=== PATIENT | male | born 1975 | race Two or more races ===

== ENCOUNTER 2024-03-26 09:39 | Emergency (ER) | payer MEDICAID, SELFPAY ==
--- NOTE | ~2024-03-26 | XR_ITS ---
EXAMINATION: XR chest 2V CLINICAL INFORMATION: Reason for Exam crackles, CP COMPARISON: 2018 TECHNIQUE: XR chest 2V, 2 Views Lungs and Zo: Both lungs are clear. Pleura: Normal. Costophrenic angles are sharp. No pneumothorax. Heart: The heart is normal in size. Mediastinum: The mediastinum is within normal limits.. Bones: Skeletal structures included are normal for patient's age. XR/XR chest 2V IMPRESSION: No radiographic evidence of acute cardiopulmonary disease. .
[2024-03-26 09:52] VITALS: BP 107/72; PULSE 77; RESP 18; TEMP 36.6; O2SAT 97; BMI 23.6
--- NOTE | 2024-03-26 10:43 | ED_ITS ---
HPI - Extremity Problem General Chief complaint: Extremity Injury, Upper Stated complaint: R arm pain, no injury Time Seen by Provider: 03/26/24 10:13 Source: patient and RN notes reviewed Mode of arrival: ambulatory Limitations: no limitations History of Present Illness ED Provider: Mercedes Spence PA-C [facility] Narrative: This is a 48-year-old male who presents emergency department with complaints of right arm pain x3 days. Patient states that he has been going to physical therapy due to needing to increased cardio as he had a heart attack last year. He states that he was on the hand crank cycling for 15 minutes on and again on Thursday. He states that evening after physical therapy, he had pain in his right arm. He states that the pain worsened, and he went to physical therapy again. He states the pain comes and goes, and states that the pain at times can worsened with movement. He states that the pain also can occur at night when he is resting. He has been taking ibuprofen with minimal relief. He denies any fevers, chills, chest pain, shortness of breath, abdominal pain, nausea, vomiting or diarrhea. Related Data Previous Rx's ?Medication ?Instructions ?Recorded acetaminophen 500 mg tablet 500 mg PO Q6H PRN pain #30 tabs 03/26/24 (Tylenol Extra Strength) ibuprofen 600 mg tablet 600 mg PO Q6H PRN pain #30 tabs 03/26/24 Allergies Allergy/AdvReac Type Severity Reaction Status Date / Time gabapentin Allergy Intermediate Rash Verified 03/26/24 09:53 Review of Systems 2 Review of Systems: Yes all other systems are reviewed and are negative Constitutional: Constitutional: Reports as per [facility] Social History Social History Smoked in Last 30 Days: No Use of substances other than those prescribed or required for medical reasons: No Advance Directives: No Do you have a plan to hurt others: No Plan Physical Exam 2 Vital Signs: Vital Signs: Last Vital Signs Temp 98.9 F 03/26/24 15:19 Pulse 64 03/26/24 15:19 Resp 18 03/26/24 15:19 BP 113/78 03/26/24 15:19 Pulse Ox 98 03/26/24 15:19 O2 Del Method Room Air 03/26/24 15:19 BMI result Body Mass Index 23.6 Const: General: cooperative, comfortable and no acute distress O rientation/consciousness: patient oriented x3 Limitations: no limitations HEENT: Head: Yes normal to inspection, Yes normocephalic and Yes atraumatic Ears: hearing grossly normal bilaterally General nose exam: Normal external nose present Face and sinus: Yes normal facial exam Mouth: Normal oral and palatal mucosa present, oropharynx normal and moist mucous membranes Throat: Yes posterior oropharynx normal Eyes: General: appearance normal, both eyes and all related structures E yelids: Yes eyelids normal Conjunctivae: conjunctivae normal Sclerae: s clerae normal Pupils: Equal, round and reactive pupils present EOM: EOMs intact bilaterally Neck: Neck: Yes normal visual inspection, Yes full ROM and Yes no lymphadenopathy Lymphatic: no lymphadenopathy noted Chest: Chest palpation & inspection: normal inspection of the chest Resp: Effort & Inspection: normal respiratory effort and able to speak in complete sentences Auscultation: clear to auscultation bilaterally, no crackles, no rales, no rhonchi and no wheezes Cardio: Rate: regular rate Rhythm: regular rhythm Heart sounds: S1 normal heart sound present and S2 normal heart sound present GI: Inspection: Yes normal to inspection Skin: General skin exam: no rashes or lesions noted Trauma: no lacerations or abrasions Wounds: no wounds Neuro: General: patient oriented x3 and moves all extremities Cranial nerves: Yes Equal, round and reactive pupils present Extrem: Other: Right arm with no obvious bony deformity or swelling. Mild tenderness palpation along the biceps and triceps. Full range of motion of the arm without any worsening pain.distal sensation circulation intact. Strong radial pulse. General: Yes normal to inspection Right upper extremity: normal to inspection Left upper extremity: normal to inspection Right lower extremity: normal to inspection Left lower extremity: normal to inspection Course Reevaluation(s) Reevaluation #1: Repeat CPK 448, improved from 513. EKG without any ischemic changes. Discussed with patient that symptoms likely due to strenuous activity at physical therapy. Advised to rest, drink plenty of fluids. Advised to return with any new or worsening symptoms. Patient understands and agrees with plan. Patient stable for discharge Time: 15:05 Medications Administered Discontinued Medications Generic Name Dose Route Start Last Admin Trade Name Freq PRN Reason Stop Dose Admin Acetaminophen 975 mg 03/26/24 11:46 03/26/24 11:59 Acetaminophen 325 Mg Tablet PO 03/26/24 11:47 975 mg ONCE ONE Administration Sodium Chloride 1,000 mls @ 999 mls/hr 03/26/24 12:06 03/26/24 13:36 Ns IV 03/26/24 13:06 Infused .Q1H1M ONE Infusion Sodium Chloride 1,000 mls @ 999 mls/hr 03/26/24 12:43 03/26/24 13:37 Ns IV 03/26/24 13:43 999 mls/hr .Q1H1M ONE Administration Medical Decision Making Medical Decision Making [facility] Narrative: This is a 48-year-old male, with a history of myocardial infarction last year, who presents emergency department with complaints of right arm pain x3 days. On arrival, patient nontoxic appearing, in no acute distress. Vital signs within normal limits. Patient did have physical therapy on and Thursday and performed activities which he does not typically do. Symptoms likely musculoskeletal however given history of MD, will obtain labs, EKG, and chest x- ray to ensure no other cardiac etiology is occurring with atypical symptoms. Plan: Labs, EKG, chest x-ray Differential Diagnosis Differential Diagnoses: The differential diagnosis associated with the presentation includes Rhabdomyolysis, muscle strain, spasm, DOMS, ACS-unlikely Admission/Observation Consideration of admission/observation: Escalation of care including admission/observation considered Escalation of care including admission/observation considered however given workup today not warranted at this time. Lab Data [facility] Lab Attestation statement: I reviewed the patient's lab results. No leukocytosis, H&H revealing normocytic anemia an H&H of 13.2/38.7, creatinine 1.17, no previous for comparison. CPK 512, repeat 448. Troponin less than 2.7, does not need repeat as symptoms have been ongoing for the last 2 days. 03/26/24 11:37 03/26/24 11:37 Labs: Lab Results 03/26/24 03/26/24 Range/Units 11:37 14:27 WBC 6.6 (4.8-10.8) X10*3/uL RBC 4.20 L (4.60-5.80) X10*6/uL Hgb 13.2 L (14.0-18.0) g/dl Hct 38.7 L (42.0-52.0) % MCV 92.1 (80.0-98.0) fL MCH 31.4 (27.0-33.0) pg MCHC 34.1 (31.0-36.0) g/dl RDW 13.2 (11.0-16.0) % Plt Count 196 (160-400) X10*3/uL MPV 9.8 (9.4-12.4) fL Immature Gran % (Auto) 0.3 (0.0-0.4) % Neut % (Auto) 61.0 (45-73) % Lymph % (Auto) 24.6 (20-40) % [place] % (Auto) 10.6 (2-11) % Eos % (Auto) 3.2 (0-4) % Baso % (Auto) 0.3 (0-2) % Lymph # (Auto) 1.6 (1.2-4.9) X10*3/uL [place] # (Auto) 0.7 (0.1-1.2) X10*3/uL Eos # (Auto) 0.2 (0.0-0.4) X10*3/uL Baso # (Auto) 0.0 (0.0-0.2) X10*3/uL Abs Immat Gran (auto) 0.02 (0.00-0.03) X10*3/uL Absolute Neuts (auto) 4.0 (2.0-8.3) x10*3/uL Absolute Nucleated RBC 0.000 (0.0-0.012) X10*3/uL Nucleated RBC % (auto) 0.0 (0.0-0.2) /100WBC PT 11.2 (11.1-13.3) SEC INR 0.9 (0.9-1.1) APTT 35.0 (26.0-36.8) SEC Sodium 144 (135-145) mmol/L Potassium 4.1 (3.3-5.1) mmol/L Chloride 108 (96-108) mmol/L Carbon Dioxide 31 H (22-29) mmol/L Anion Gap 9 L (12-20) BUN 9 (9-16) mg/dL Creatinine 1.17 (0.5-1.4) mg/dL Estim Creat Clear Calc 78.0 Estimated GFR > 60 Random Glucose 83 (60-115) mg/dL Calcium 9.4 (8.4-10.2) mg/dL Total Bilirubin 0.5 (0.0-1.0) mg/dL Direct Bilirubin 0.2 (0.0-0.5) mg/dL AST 26 (5-37) U/L ALT 27 (0-40) U/L Alkaline Phosphatase 51 (39-117) U/L Total Creatine Kinase 513 H 448 H (38-174) U/L Troponin I High Sens < 2.7 (<3.5-35.0) ng/L Total Protein 6.4 L (6.5-8.0) g/dL Albumin 4.3 (3.5-5.0) g/dL Independent Interpretation Interpretation: I reviewed the x-ray and agree with the radiology report. EKG normal sinus rhythm with PVCs, no ST elevation or depression. Radiology Impression Discussion of test interpretation with radiology: I have reviewed the radiologist's reading. Radiologist Impression: XR/XR chest 2V IMPRESSION: No radiographic evidence of acute cardiopulmonary disease. . Dictated By: Dina Reeder MD Scores Heart Score History: -0- slightly suspicious ECG: -0- normal Age: -1- >45 - <65 Risk factory: -1- 1 or 2 risk factors Troponin: -0- < or = normal limit Score: 2 Risk: 1.7% Discharge Plan Discharge Clinical Impression: Arm pain, right Patient Disposition: Home, Self-Care Instructions: Arm Pain (ED) Additional Instructions: You were seen in the emergency department due to right arm pain. Please drink plenty of fluids and get plenty of rest. Gentle stretching, massage, heat or ice can also help with your symptoms. Your workup today was reassuring. If any new or worsening symptoms occur including but not limited to worsening pain, fevers, chills, chest pain, shortness of breath, please return for re- evaluation. Prescriptions: New ibuprofen 600 mg tablet 600 mg PO Q6H PRN (Reason: pain) Qty: 30 0RF acetaminophen [Tylenol Extra Strength] 500 mg tablet 500 mg PO Q6H PRN (Reason: pain) Qty: 30 0RF Interventions: ED Discharge Assessment Last Done: 03/26/24 15:19 Discharge Date/Time: 03/26/24 15:21 Print Language: Luxem[place]ish
--- NOTE | 2024-03-26 10:52 | ECG_ITS ---
Test Reason : CHEST PAIN Blood Pressure : / mmHG Vent. Rate : 068 BPM Atrial Rate : 068 BPM P-R Int : 152 ms QRS Dur : 080 ms QT Int : 402 ms P-R-T Axes : 034 037 027 degrees QTc Int : 427 ms Sinus rhythm with Premature supraventricular complexes T wave abnormality, consider anterolateral ischemia Abnormal ECG No previous ECGs available Referred By: Mercedes Spence Electronically Signed By:NANCY TYLER MD
[2024-03-26 11:42] LABS: MANUAL DIFF FLAG NO
[2024-03-26 11:44] LABS: Basophils Percent Auto 0.3 % (0-2); Eosinophils Absolute Auto 0.2 X10*3/uL (0.0-0.4); Eosinophils Percent Auto 3.2 % (0-4); Hematocrit 38.7 % (42.0-52.0); Hemoglobin 13.2 g/dl (14.0-18.0); Imm Gran Abs Auto 0.02 X10*3/uL (0.00-0.03); Imm Gran Pct Auto 0.3 % (0.0-0.4); Lymphocytes Absolute Auto 1.6 X10*3/uL (1.2-4.9); Lymphocytes Percent Auto 24.6 % (20-40); Mean Corpuscular HGB Conc 34.1 g/dl (31.0-36.0); Mean Corpuscular Hemoglobin 31.4 pg (27.0-33.0); Mean Corpuscular Volume 92.1 fL (80.0-98.0); Mean Platelet Volume 9.8 fL (9.4-12.4); Monocytes Absolute Auto 0.7 X10*3/uL (0.1-1.2); Monocytes Percent Auto 10.6 % (2-11); Platelet Count 196 X10*3/uL (160-400); Red Cell Distribution Width 13.2 % (11.0-16.0); White Blood Count 6.6 X10*3/uL (4.8-10.8)
[2024-03-26 11:53] LABS: INTERNATIONAL NORM RATIO 0.9 (0.9-1.1); Prothrombin Time 11.2 SEC (11.1-13.3)
[2024-03-26] MEDS: Acetaminophen 325 MG TABLET 975 MG PO (11:59)
[2024-03-26 12:01] LABS: Alanine Aminotransferase 27 U/L (0-40); Albumin Level 4.3 g/dL (3.5-5.0); Alkaline Phosphatase 51 U/L (39-117); Anion Gap 9 (12-20); Aspartate Amino Transferase 26 U/L (5-37); Bilirubin Direct 0.2 mg/dL (0.0-0.5); Bilirubin Total 0.5 mg/dL (0.0-1.0); Blood Urea Nitrogen 9 mg/dL (9-16); Calcium 9.4 mg/dL (8.4-10.2); Carbon Dioxide 31 mmol/L (22-29); Chloride 108 mmol/L (96-108); Estimated Glomerular Filt Rate > 60; Glucose Random 83 mg/dL (60-115); Potassium 4.1 mmol/L (3.3-5.1); Sodium 144 mmol/L (135-145); Total Protein 6.4 g/dL (6.5-8.0)
[2024-03-26 12:11] LABS: Troponin-I High Sensitivity < 2.7 ng/L (<3.5-35.0)
[2024-03-26 12:12] VITALS: BP 107/67; PULSE 68; RESP 18; O2SAT 98
[2024-03-26] MEDS: 0.9 % Sodium Chloride 1,000 ML 999 ML IV ×2 (12:31→13:37)
--- NOTE | 2024-03-26 12:45 | PC.NURSE ---
This RN received a call from Alondra who is a worker at the Facility the patient came from, her direct number is [phone], she told staff to call her to set up a ride when he is ready for d/c, staff unaware he came from a [place] [facility].
[2024-03-26 13:57] VITALS: BP 113/78; PULSE 64; RESP 18; O2SAT 98
--- NOTE | 2024-03-26 15:18 | PC.NURSE ---
Pt up for d/c, rebekah notified, pt to have transport back to house set up. t okay to be d/c and wait for ride in waiting room at this time.
[2024-03-26 15:19] VITALS: BP 113/78; PULSE 64; RESP 18; TEMP 37.2; O2SAT 98
== END 2024-03-26 15:21 | disposition home or self-care (01) ==
PROVIDERS: Physician Assistant Medical; Emergency Provider Emergency Medicine
DX: M79.601 Pain in right arm (principal)
CPT/HCPCS: 36415; 71046; 80048; 80076; 82550; 84484; 85025; 85610; 85730; 93005; 96360; 99284; 99285

== ENCOUNTER → 2024-03-26 10:52 | Outpatient (BNV) | payer MEDICAID, SELFPAY | PROVIDERS: Emergency Provider Emergency Medicine; Visit Provider Internal Medicine Cardiovascular Disease | DX: R07.9 Chest pain, unspecified (principal) | CPT/HCPCS: 93010 ==